=== PATIENT | male | born 1965 | race Caucasian/White ===

== ENCOUNTER 2020-12-02 15:03 | Emergency (ER) | payer BC ==
[~2020-12-02] VITALS: Ht 185.4 cm; Wt 90.7 kg
[2020-12-02] MEDS ORDERED: VICTARVI (15:13)
[2020-12-02 18:47] VITALS: BP 157/72
== END 2020-12-02 18:48 | disposition home or self-care (01) ==
LOC: M.ERS 15:03
DX: S16.1XXA Strain of muscle, fascia and tendon at neck level, initial encounter (principal); S09.8XXA Other specified injuries of head, initial encounter; W18.09XA Striking against other object with subsequent fall, initial encounter; Y93.89 Activity, other specified; Y92.39 Other specified sports and athletic area as the place of occurrence of the external cause; Y99.8 Other external cause status